=== PATIENT | female | born 1975 | race Caucasian/White ===

== ENCOUNTER 2023-10-20 05:04 | Outpatient (CLI) | payer OTHER | END 2023-10-20 23:59 | disposition EMS.NT | LOC: EMS 05:04 | DX: M79.661 Pain in right lower leg (principal) ==

== ENCOUNTER 2023-10-20 18:36 | Emergency (ER) | payer OTHER ==
[2023-10-20 19:12] VITALS: BP 136/89; O2SAT 99
[2023-10-20] MEDS ORDERED: SULFAMETH/TRIMETH DS 800/160 MG TABLET PO STA (19:14)
[2023-10-20] MEDS ORDERED: cephALEXin 250 MG CAPSULE PO STA (19:14)
--- NOTE | 2023-10-20 19:16 | ED Physician Documentation ---
History of Present Illness - Stated complaint Stated Complaint: R LEG BUG BITE - Chief complaint Chief Complaint: Wound - History obtained from History obtained from: Patient, Family - History of Present Illness Timing: How many days ago (2) Pain level max: 5 Pain level now: 5 - Additonal information Additional information: 48-year-old female presents to the emergency department with redness and swelling to the anterior aspect of the right lower leg. She states that she squeezed it today and there was green drainage. No fevers. No chills. Has not had similar symptoms previously. Nothing makes it better or worse. She is not on any medications at home. Review of Systems Constitutional: denies: Fever, Chills GI: denies: Vomiting PD PAST MEDICAL HISTORY - Past Medical History Past Medical History: Yes Psych: Depression, Anxiety, Bipolar disorder - Past Surgical History Past Surgical History: No General: Cholecystectomy /RN ER: Tubal ligation, Hysterectomy - Present Medications Home Medications: Ambulatory Orders Medication Instructions Recorded Confirmed Sulfamethox/Trimeth 800/160 1 each PO BID #14 tablet 10/20/23 [Bactrim Ds 800/160] cephALEXin [Keflex] 500 mg PO Q6H #28 cap 10/20/23 - Allergies Allergies/Adverse Reactions: Allergies Allergy/AdvReac Type Severity Reaction Status Date / Time erythromycin base Allergy Hives Verified 10/20/23 18:57 sumatriptan Allergy Hives Verified 10/20/23 18:57 - Social History Does the pt smoke?: No Smoking Status: Never smoker PD ED PE NORMAL - Vitals Vital signs reviewed: Yes - General General: Alert and oriented X 3, No acute distress - HEENT HEENT: Moist mucous membranes - Cardiac Cardiac: RRR - Respiratory Respiratory: No respiratory distress, Clear bilaterally - Derm Derm: Warm and dry - Extremities Extremities: Other (R leg - 3 x 3 cm erythematous area to the proximal tibia. There is no induration. No fluctuance. No drainage.) - Neuro Neuro: Alert and oriented X 3 Results - Vitals Vitals: Vital Signs - 24 hr 10/20/23 18:54 Temperature 36.8 C Heart Rate 110 H Respiratory 18 Rate Blood Pressure 136/89 H O2 Saturation 99 PD Medical Decision Making - ED course Complexity details: considered differential, d/w patient ED course: Patient with a small area of cellulitis to the right proximal tibia. No active drainage. Neurovascular intact. No induration or fluctuance to suggest recur rent or continued abscess. Will treat as cellulitis. Patient counseled regarding signs and symptoms for which I believe and urgent re-evaluation would be necessary. Patient with good understanding of and agreement to plan and is comfortable going home at this time This document was made in part using voice recognition software. While efforts are made to proofread this document, sound alike and grammatical errors may occur. Departure - Departure Disposition: 01 Home, Self Care Clinical Impression: Abscess Condition: Good Instructions: ED Staph Infec Abx Tx Only Follow-Up: [facility] [place] [Provider Group] [facility] In [facility] [Provider Group] Prescriptions: Sulfamethox/Trimeth 800/160 [Bactrim Ds 800/160] 1 each PO BID #14 tablet cephALEXin [Keflex] 500 mg PO Q6H #28 cap Comments: Your prescriptions were sent to [facility] in [place]. Please follow-up with your doctor for further care. You should have a wound check in approximately 3 days. If you are not noticing improvement in 24 to 48 hours, the redness is spreading or you are developing fevers, please return for repeat evaluation. Please take all antibiotics until gone even if you are feeling better. Forms: PCP List Discharge Date/Time: 10/20/23 19:35
== END 2023-10-20 19:35 | disposition home or self-care (01) ==
LOC: ED 18:36
DX: L02.415 Cutaneous abscess of right lower limb (principal)
CPT/HCPCS: 99282; 99283

== ENCOUNTER 2023-10-23 16:54 | Emergency (ER) | payer OTHER ==
[2023-10-23 17:18] VITALS: BP 138/99; O2SAT 100
[2023-10-23] MEDS ORDERED: HYDROcod/ACETAM 5/325 MG TABLET PO STA (17:58)
--- NOTE | 2023-10-23 18:00 | ED Physician Documentation ---
History of Present Illness - Stated complaint Stated Complaint: RT KNEE SPIDER BITE - Chief complaint Chief Complaint: Ext Problem - History obtained from History obtained from: Patient - History of Present Illness Timing: How many weeks ago (1) Pain level max: 5 Pain level now: 5 - Additonal information Additional information: Patient is a 48-year-old female with a small abscess with cellulitis to the right knee. Was seen here recently and started on antibiotics. She states there is continued drainage. Worse with palpation. Nothing makes it better. No fevers. No chills. No pain with range of motion of the joint. Review of Systems Constitutional: denies: Fever, Chills GI: denies: Vomiting, Diarrhea Skin: denies: Rash PD PAST MEDICAL HISTORY - Past Medical History Past Medical History: Yes Cardiovascular: None Respiratory: None Neuro: None Endocrine/Autoimmune: None GI: None CURB WORKER: None : None HEENT: None Psych: Depression, Anxiety, Bipolar disorder Musculoskeletal: None Derm: None - Past Surgical History Past Surgical History: Yes General: Cholecystectomy /[employer]: Tubal ligation, Hysterectomy - Present Medications Home Medications: Ambulatory Orders Medication Instructions Recorded Confirmed Sulfamethox/Trimeth 800/160 1 each PO BID #14 tablet 10/20/23 [Bactrim Ds 800/160] cephALEXin [Keflex] 500 mg PO Q6H #28 cap 10/20/23 HYDROcod/ACETAM 5/325 [Claude 5/325] 1 - 2 ea PO Q6H PRN #10 tablet 10/23/23 - Allergies Allergies/Adverse Reactions: Allergies Allergy/AdvReac Type Severity Reaction Status Date / Time erythromycin base Allergy Hives Verified 10/23/23 17:14 sumatriptan Allergy Hives Verified 10/23/23 17:14 - Social History Does the pt smoke?: No Smoking Status: Never smoker Does the pt drink ETOH?: No Does the pt have substance abuse?: No - Immunizations Immunizations are current?: No - POLST Patient has POLST: No PD ED PE NORMAL - Vitals Vital signs reviewed: Yes - General General: Alert and oriented X 3, No acute distress - HEENT HEENT: Moist mucous membranes - Derm Derm: Warm and dry - Extremities Extremities: Other (R knee - 3 x 3 cm area of erythema and induration to the proximal tibia near the Tibial tuberosity. There is a small amount of purulent drainage. Neurovascular intact) - Neuro Neuro: Alert and oriented X 3 Results - Vitals Vitals: Vital Signs - 24 hr 10/23/23 17:06 Temperature 36.3 C L Heart Rate 93 Respiratory 18 Rate Blood Pressure 138/99 H O2 Saturation 100 Oxygen O2 Source Room air - Labs Labs: Microbiology 10/23/23 17:35 Wound Culture - Preliminary Abscess Procedures - Abscess I&D (location) Right lower leg Preparation: Lidocaine 1% Incision: Incised with scalpel, Purulent drainage, Culture obtained Other: Pt tolerated well, Dressing applied, Antibiotic prescribed PD Medical Decision Making - ED course Complexity details: considered differential, d/w patient ED course: Patient with a small abscess, this was incised and drained. Her cellulitis is improved from prior visit. We will have her finish her antibiotics, keflex and bactrim. A wound culture was sent. Patient is well-appearing, nontoxic. Afebrile. Will prescribe pain medication for home as well. Patient counseled regarding signs and symptoms for which I believe and urgent re-evaluation would be necessary. Patient with good understanding of and agreement to plan and is comfortable going home at this time This document was made in part using voice recognition software. While efforts are made to proofread this document, sound alike and grammatical errors may occur. Departure - Departure Disposition: 01 Home, Self Care Clinical Impression: Abscess Condition: Good Instructions: ED Abscess IandD Follow-Up: your,doctor in 3 days for wound check [Other] Prescriptions: HYDROcod/ACETAM 5/325 [Claude 5/325] 1 - 2 ea PO Q6H PRN #10 tablet PRN Reason: Pain Comments: Your prescription was sent to [facility] in [place]. A wound culture was performed today, we will call you if a antibiotic change is needed. Please take all antibiotics until gone. Please follow-up either here or in the walk-in clinic in 3 days for a wound check. Forms: PCP List Discharge Date/Time: 10/23/23 18:14
--- NOTE | 2023-10-26 15:34 | ED Physician Documentation ---
ED Addendum - Addendum Addendum: 10/26/23 15:32 Culture reviewed, she is already on Bactrim so no change needed. I did call her and notify her of MRSA positivity.
== END 2023-10-23 18:14 | disposition home or self-care (01) ==
LOC: ED 16:54
DX: L02.415 Cutaneous abscess of right lower limb (principal); A49.02 Methicillin resistant Staphylococcus aureus infection, unspecified site
CPT/HCPCS: 10060; 87070; 87181; 87205; 99283; A9270